=== PATIENT | male | born 1960 | race Caucasian/White ===

== ENCOUNTER 2020-03-16 19:44 | Emergency (ER) | payer BC ==
[~2020-03-16] VITALS: Ht 172.7 cm; Wt 78.0 kg
[2020-03-16 19:51] VITALS: BP 136/85
--- NOTE | 2020-03-16 19:52 | NUR ---
PT CAME TO THE ED C/O R SIDED HEAD AND BEHIND THE EAR RASH/SKIN IRRITATION. +REDNESS +MINIMAL SWELLING. PT AAOX4, VSS, RESPIRATIONS EVEN AND UNLABORED ON RA W/ NAD NOTED. PT CONNECTED TO THE MONITOR AND POX
--- NOTE | 2020-03-16 20:35 | NUR ---
Patient discharged to home in stable condition. Written and verbal after care instructions given. Patient verbalizes understanding of instruction.
== END 2020-03-16 20:35 | disposition home or self-care (01) ==
LOC: ER 19:44
DX: B02.8 Zoster with other complications (principal)